=== PATIENT | female | born 1960 | race Caucasian/White ===

== ENCOUNTER 2016-09-10 12:10 | Emergency (ER) | payer MEDICAID ==
[~2016-09-10] VITALS: Ht 170.1 cm; Wt 74.8 kg
[~2016-09-10 12:10] MED LIST: B-1100 MG PO; MACROBID100 M1 PO
[2016-09-10] MEDS ORDERED: CEPHULAC10 GM/151 PO (12:44)
[2016-09-10] MEDS ORDERED: PANTOPRAZOLE SO40 MG PO (12:44)
[2016-09-10 13:02] LABS: EOS % 0.1 % (1.0-4.0); HEMOGLOBIN 7.2 g/dl (12.0-16.0); IG # 0.1 10*3/uL (0.0-0.1); LYMPH # 1.7 10*3/uL (1.3-4.4); LYMPH % 10.8 % (27.0-41.0); MEAN CELL VOLUME 105.5 fl (81.0-99.0); MEAN CORPUSCULAR HGB 36.2 pg (27.0-31.0); MEAN CORPUSCULAR HGB CONC 34.3 g/dl (33.0-37.0); MEAN PLATELET VOLUME 9.4 fl (9.6-12.3); MONO # 0.8 10*3/uL (0.1-1.0); MONO % 4.9 % (3.0-9.0); NEUT # 13.2 10*3/uL (2.3-7.9); NEUT % 83.6 % (47.0-73.0); NUCLEATED RED BLOOD CELL 0.1 % (0.0-0.0); PLATELET COUNT AUTOMATED 191 10*3/uL (130-400); RED BLOOD COUNT 1.99 10*6/uL (4.10-5.10); RED CELL DISTRI WIDTH 27.9 % (0-14.5); WHITE BLOOD COUNT 15.8 10*3/uL (4.8-10.8)
[2016-09-10 13:12] LABS: INTERNATIONAL NORM RATIO 1.9 (2.0-3.5); PROTHROMBIN TIME 21.3 SECONDS (9.0-12.4)
[2016-09-10 13:18] LABS: ALBUMIN 1.5 gm/dl (3.1-4.5); BILIRUBIN, TOTAL 2.6 mg/dl (0.2-1.0); C-REACTIVE PROTEIN 2.86 MG/DL (0-0.3); MAGNESIUM 2.7 mg/dL (1.5-2.1); POTASSIUM 3.1 mmol/L (3.5-5.1); TOTAL PROTEIN 6.3 gm/dL (6.4-8.2)
[2016-09-10 13:22] LABS: CKMB 9.5 ng/ml (0.5-3.6); TROPONIN I 0.326 ng/ml (<0.045)
[2016-09-10 14:38] LABS: BILIRUBIN 1+ (NEGATIVE); BLOOD NEGATIVE (NEGATIVE); CLARITY SL CLOUDY (CLEAR); COLOR YELLOW (YELLOW); GLUCOSE NEGATIVE (NEGATIVE); KETONE 1+ (NEGATIVE); LEUKO ESTERASE NEGATIVE (NEGATIVE); NITRITE NEGATIVE (NEGATIVE); PROTEIN NEGATIVE (NEGATIVE); SPECIFIC GRAVITY 1.015 (1.005-1.030); UROBILINOGEN 0.2 E.U./dl (0.2-1.0)
[2016-09-10 14:48] LABS: HYALINE CAST TNTC; MUCOUS TRACE; RBC 0-2 rbc/hpf (0-2); URINE REFLEX COMMENT NO (NO); WBC 0-2 wbc/hpf (0-5)
[2016-09-10 14:59] LABS: LA>2 REFLEX 2 HR DRAW NOW
[2016-09-10 16:00] VITALS: BP 98/48
== END 2016-09-10 15:00 | disposition short-term general hospital (02) ==
LOC: ED 12:10
PROVIDERS: Emergency Medicine
DX: S06.5X0A Traumatic subdural hemorrhage without loss of consciousness, initial encounter (principal); N17.9 Acute kidney failure, unspecified; K72.90 Hepatic failure, unspecified without coma; F17.200 Nicotine dependence, unspecified, uncomplicated; Z79.899 Other long term (current) drug therapy; W18.39XA Other fall on same level, initial encounter; Y93.89 Activity, other specified; Y92.89 Other specified places as the place of occurrence of the external cause; Y99.9 Unspecified external cause status